=== PATIENT | female | born 1960 | race Caucasian/White ===

== ENCOUNTER → 2017-08-30 | Outpatient (REF) | payer OTHER | LOC: M LAB REF 12:17 | PROVIDERS: ATTEND Physician Assistant Medical | DX: J02.9 Acute pharyngitis, unspecified (principal) ==

== ENCOUNTER → 2017-11-23 | Outpatient (REF) | payer OTHER | LOC: M LAB REF 16:37 | DX: R50.9 Fever, unspecified (principal) ==

== ENCOUNTER → 2024-05-09 | Outpatient (REF) | payer MEDICARE, OTHER | LOC: M LAB REF 16:10 | PROVIDERS: ATTEND Nurse Practitioner Adult Health | DX: J02.9 Acute pharyngitis, unspecified (principal) ==

== ENCOUNTER 2024-10-31 08:13 | Day surgery (SDC) | payer MEDICARE, OTHER ==
[~2024-10-31] VITALS: Ht 152.4 cm; Wt 74.9 kg
[~2024-10-31 08:13] MED LIST: ACID1TAB PO; ADVA1AER8 INH; ALPR0.5T3 PO; ALRE0.5S OU; AMLO-140 PO; CETI-24 PO; DICY20TA20 PO; ESOM40CA35 PO; ESTR10TA VG; FAMO40TA3 PO; FLUTISP; FURO40TA2 PO; GAVICHW3 PO; LEVO50TA5 PO; MELO15TA28 PO; MONT10TA97 PO; OLOP2.5D7 OU; POTA1TAB23 PO; PROA1AER2 INH; PROG1CAP8 PO; REFR0.5D8 OU; SPIR-10 PO; VIAC1CHW PO
[2024-10-31] MEDS ORDERED: propofoL 200 MG/20 ML VIAL As Ordered ONE (09:02)
[2024-10-31] MEDS ORDERED: LIDOCAINE 2% 100MG/5ML SDV (FOR ANES.) As Ordered ONE (09:02)
[2024-10-31] MEDS ORDERED: fentaNYL 100 MCG/2 ML INJECTION As Ordered ONE (09:14)
[2024-10-31] MEDS ORDERED: ePHEDrine SULFATE 25 MG/5 ML(5MG/ML) SYRINGE As Ordered ONE (09:34)
[2024-10-31 09:49] VITALS: TEMP 97.4
[2024-10-31 10:09] VITALS: BP 101/59; O2SAT 97
== END 2024-10-31 10:17 | disposition home or self-care (01) ==
LOC: M OPP 08:13
PROVIDERS: ATTEND Internal Medicine Gastroenterology
DX: Z12.11 Encounter for screening for malignant neoplasm of colon (principal); K64.0 First degree hemorrhoids; K57.30 Diverticulosis of large intestine without perforation or abscess without bleeding; K22.89 Other specified disease of esophagus; K44.9 Diaphragmatic hernia without obstruction or gangrene; R12 Heartburn; Z88.2 Allergy status to sulfonamides; Z91.09 Other allergy status, other than to drugs and biological substances; Z79.51 Long term (current) use of inhaled steroids; Z79.890 Hormone replacement therapy; I10 Essential (primary) hypertension; E03.9 Hypothyroidism, unspecified; J45.909 Unspecified asthma, uncomplicated
CPT/HCPCS: 43239; 88305; G0121; J3010

== ENCOUNTER 2025-06-17 09:28 | Day surgery (SDC) | payer MEDICARE, OTHER ==
[~2025-06-17] VITALS: Ht 152.4 cm; Wt 75.3 kg
[~2025-06-17 09:28] MED LIST changes: +AYRSPR NARES; +LIDOCAINE W/EPINEPHrine 1% 20 ML VIAL XX ONE; +SODIUM BICARBONATE 8.4% INJ 50MEQ/50ML VIAL XX ONE; +SYST1SOL4 OD
[2025-06-17] MEDS ORDERED: LIDOCAINE W/EPINEPHrine 1% 20 ML VIAL As Ordered ONE (09:58)
[2025-06-17] MEDS ORDERED: SODIUM BICARBONATE 4.2% 0.5MEQ/ML 5ML VIAL (FOR USE FOR INFANT SYRINGE) As Ordered ONE (09:58)
[2025-06-17] MEDS ORDERED: SODIUM BICARBONATE 8.4% INJ 50MEQ/50ML VIAL As Ordered ONE (10:01)
[2025-06-17 11:33] VITALS: BP 141/60; TEMP 98.1; O2SAT 95
== END 2025-06-17 11:48 | disposition home or self-care (01) ==
LOC: M SDC 09:28
PROVIDERS: ATTEND Orthopaedic Surgery Hand Surgery
DX: M65.311 Trigger thumb, right thumb (principal)